=== PATIENT | male | born 1960 | race Caucasian/White ===

== ENCOUNTER → 2020-10-18 | Day surgery (SDC) | payer BC ==
[~2020-10-18] MED LIST: FENTANYL CITRATE/PF 100MCG/2 ML INJ ONE; FLOMAX0.4 MG PO; MIDAZOLAM HCL 2 MG/2 ML VIAL ONE; OR PHACO EYE KIT ONE; PREOP PHACO EYE KIT ONE; TECFIDERA240 MG PO; [UNRECOGNIZED DRUG - OTHER] PO
[2020-10-18 13:25] VITALS: BP 119/79
== END | disposition home or self-care (01) ==
LOC: OR 09:14
PROVIDERS: ATTEND Ophthalmology
DX: H25.12 Age-related nuclear cataract, left eye (principal); G35 Multiple sclerosis; J45.909 Unspecified asthma, uncomplicated; E11.9 Type 2 diabetes mellitus without complications; I10 Essential (primary) hypertension; Z01.812 Encounter for preprocedural laboratory examination; Z20.822 Contact with and (suspected) exposure to COVID-19
CPT/HCPCS: 36415; 66984; 82948; J2250; J3010; U0002; V2632

== ENCOUNTER → 2020-11-01 | Day surgery (SDC) | payer BC ==
[2020-11-01 16:34] VITALS: BP 115/74
== END | disposition home or self-care (01) ==
LOC: OR 12:25
PROVIDERS: ATTEND Ophthalmology
DX: H25.11 Age-related nuclear cataract, right eye (principal); G35 Multiple sclerosis; E11.9 Type 2 diabetes mellitus without complications; N40.0 Benign prostatic hyperplasia without lower urinary tract symptoms; I10 Essential (primary) hypertension; Z01.812 Encounter for preprocedural laboratory examination; Z20.822 Contact with and (suspected) exposure to COVID-19
CPT/HCPCS: 36415; 66984; 82948; J2250; J3010; U0002; V2632